=== PATIENT | male | born 1970 | race American Indian/Alaskan Native ===

== ENCOUNTER 2016-10-13 14:34 | Emergency (ER) | payer MEDICARE ==
[2016-10-13 15:53] LABS: Basophils % (Auto) 0.7 % (0.0-1.8); Eosinophils % (Auto) 0.1 % (0.0-4.3); Hematocrit 50.3 % (35.5-45.6); Mean Corpuscular HGB Conc 34 % (32-34); Mean Corpuscular Hemoglobin 31 pg (28-32); Mean Corpuscular Volume 92 fl (84-94); Platelet Count 297 K/mm3 (140-440); Red Blood Count 5.48 M/mm3 (3.65-5.03); Red Cell Distribution Width 15.5 % (13.2-15.2); White Blood Count 9.3 K/mm3 (4.5-11.0)
[2016-10-13 15:54] LABS: Alanine Aminotransferase 11 units/L (7-56); Albumin 3.8 g/dL (3.9-5); Albumin/Globulin Ratio 1.5 %; Alkaline Phosphatase 64 units/L (35-129); Anion Gap 18 mmol/L; BUN/Creatinine Ratio 8.75; Blood Urea Nitrogen 7 mg/dL (9-20); Calcium 8.8 mg/dL (8.4-10.2); Carbon Dioxide 24 mmol/L (22-30); Chloride 103.3 mmol/L (98-107); Glucose 77 mg/dL (75-100); Lipase 56 units/L (13-60); Potassium 4.6 mmol/L (3.6-5.0); Sodium 141 mmol/L (137-145); Total Protein 6.4 g/dL (6.3-8.2)
[2016-10-13 16:04] LABS: Bilirubin,Urine NEG (Negative); Blood,Urine NEG (Negative); Ketones,Urine NEG (Negative); Leukocyte Esterase,Urine MOD (Negative); Nitrite,Urine NEG (Negative); Protein,Urine <15 mg/dL mg/dL (Negative); Urobilinogen,Urine < 2.0 mg/dL (<2.0)
[2016-10-13] MEDS ORDERED: TYLENOL PO ONE (19:04)
[2016-10-13] MEDS ORDERED: TYLENOL ONE (19:05)
[2016-10-13] MEDS ORDERED: PEPCID IV ONE (22:09)
[2016-10-13] MEDS ORDERED: ZOFRAN IV ONE (22:09)
[2016-10-13] MEDS ORDERED: MORPHINE IV ONE ×2 (22:09→23:31)
[2016-10-13] MEDS ORDERED: NACL 0.9% 1000 ML 1,000 ML IV ONE (22:09)
--- NOTE | 2016-10-13 22:14 | Emergency Department Report ---
HPI - General Chief Complaint: Abdominal Pain Time Seen by Provider: 10/13/16 21:50 - HPI HPI: Room 10 The patient is a 46-year-old transgender male (born female) presenting with chief complaint of abdominal pain. He states his symptoms began yesterday approximately 15-20 minutes after eating a quesadilla. Patient states his pain is located in the epigastric, periumbilical region and describes it as unbearable." Patient denies nausea vomiting or diarrhea. The patient does admit to having frequent solid bowel movements. The patient states he is tried Pepto-Bismol and Gas-X without relief. The patient states when he awakened this morning at 07:00 his pain had worsened. Patient states he is uncertain if he developed a fever. The patient rarely gets his pain a score of 7/10 Location: Abdomen Duration: Since yesterday Quality: "Unbearable" Severity:7/10 Modifying factors: [see above] Context: [see above] Mode of transportation: The patient states he has a visitor present that can drive him home ED Past Medical Hx - Past Medical History Previous Medical History?: Yes Hx Diabetes: Yes (diet controlled) - Surgical History Past Surgical History?: Yes Additional Surgical History: rt shoulder rotator cuff repair. breast removed ( transgender) - Family History Family history: no significant - Social History Smoking Status: Current Some Day Smoker (cigars) Substance Use Type: None (denies illicit drug use) - Medications Home Medications: Home Medications Medication Instructions Recorded Confirmed Last Taken Type Dicyclomine [Bentyl] 20 mg PO QID #20 tablet 10/13/16 Unknown Rx Ondansetron [Zofran ODT TAB] 8 mg PO Q8HR #20 tab.rapdis 10/13/16 Unknown Rx traMADol [Ultram] 50 mg PO Q6HR PRN #14 tablet 10/13/16 Unknown Rx ED Review of Systems ROS: Stated complaint: STOMACH PAIN Other details as noted in HPI Comment: All other systems reviewed and negative Constitutional: denies: chills, fever Eyes: denies: eye pain, eye discharge, vision change ENT: denies: ear pain, throat pain Respiratory: denies: cough, shortness of breath, wheezing Cardiovascular: denies: chest pain, palpitations Endocrine: no symptoms reported Gastrointestinal: abdominal pain. denies: nausea, vomiting, diarrhea Genitourinary: denies: urgency, dysuria Musculoskeletal: denies: back pain, joint swelling, arthralgia Skin: denies: rash, lesions Neurological: denies: headache, weakness, paresthesias Psychiatric: denies: anxiety, depression Hematological/Lymphatic: denies: easy bleeding, easy bruising Physical Exam - Physical Exam Vital Signs: Vital Signs 10/13/16 10/13/16 14:53 19:05 Temperature 98.6 F Pulse Rate 80 Respiratory 18 Rate Blood Pressure 128/76 Physical Exam: GENERAL: The patient is well-developed well-nourished male lying on stretcher not appearing to be in acute distress. [] HEENT: Normocephalic. Atraumatic. Extraocular motions are intact. Patient has moist mucous membranes. NECK: Supple. No meningitic signs are noted. There is no adenopathy noted. CHEST/LUNGS: Clear to auscultation. There is no respiratory distress noted. HEART/CARDIOVASCULAR: Regular. There is no tachycardia. There is no gallop rub or murmur. ABDOMEN: Abdomen is soft, with mild discomfort to palpation in the epigastric and suprapubic region there is no rebound or guarding. Patient has normal bowel sounds. There is no abdominal distention. SKIN: There is no rash. There is no edema. There is no diaphoresis. NEURO: The patient is awake, alert, and oriented. The patient is cooperative. The patient has normal speech MUSCULOSKELETAL: There is no evidence of acute injury. ED Course Vital Signs 10/13/16 10/13/16 14:53 19:05 Temperature 98.6 F Pulse Rate 80 Respiratory 18 Rate Blood Pressure 128/76 ED Medical Decision Making - Lab Data Result diagrams: 10/13/16 15:21 10/13/16 15:21 Laboratory Tests 10/13/16 10/13/16 10/13/16 15:21 15:21 Unknown WBC 9.3 RBC 5.48 H Hgb 17.0 H Hct 50.3 H MCV 92 MCH 31 MCHC 34 RDW 15.5 H Plt Count 297 Lymph % (Auto) 16.4 Garvin % (Auto) 8.3 H Eos % (Auto) 0.1 Baso % (Auto) 0.7 Lymph # 1.5 Garvin # 0.8 Eos # 0.0 Baso # 0.1 Seg Neutrophils % 74.5 H Seg Neutrophils # 7.0 Sodium 141 Potassium 4.6 Chloride 103.3 Carbon Dioxide 24 Anion Gap 18 BUN 7 L Creatinine 0.8 Estimated GFR > 60 BUN/Creatinine Ratio 8.75 Glucose 77 Calcium 8.8 Total Bilirubin 0.60 AST 14 ALT 11 Alkaline Phosphatase 64 Total Protein 6.4 Albumin 3.8 L Albumin/Globulin Ratio 1.5 Lipase 56 Urine Color Yellow Urine Turbidity Clear Urine pH 7.0 Ur Specific [place] 1.008 Urine Protein <15 mg/dl Urine Glucose (UA) Neg Urine Ketones Neg Urine Blood Neg Urine Nitrite Neg Urine Bilirubin Neg Urine Urobilinogen < 2.0 Ur Leukocyte Esterase Mod Urine WBC (Auto) 3.0 Urine RBC (Auto) 3.0 U Epithel Cells (Auto) < 1.0 - Radiology Data Radiology results: report reviewed (CT abdomen and pelvis), image reviewed (CT abdomen and pelvis) CT abdomen and pelvis (read by radiologist)- cholelithiasis. No dilatation of the biliary ductal system. No evidence of intestinal or urinary tract obstruction. No ileus or enteritis. Appendix is normal. Mild diverticulosis of the distal colon. - Differential Diagnosis gastritis, peptic ulcer disease, pancreatitis, diverticulitis, UTI Critical care attestation.: If time is entered above; I have spent that time in minutes in the direct care of this critically ill patient, excluding procedure time. ED Disposition Clinical Impression: Acute abdominal pain, Symptomatic cholelithiasis Disposition: TO HOME OR SELFCARE Is pt being admited?: No Does the pt Need Aspirin: No Condition: Stable Instructions: Biliary Colic (ED) Additional Instructions: Return to the emergency department immediately should you develop worsening symptoms, fever, inability to tolerate food or liquid or any other concerns. Prescriptions: Dicyclomine [Bentyl] 20 mg PO QID #20 tablet Ondansetron [Zofran ODT TAB] 8 mg PO Q8HR #20 tab.rapdis traMADol [Ultram] 50 mg PO Q6HR PRN #14 tablet PRN Reason: Pain Referrals: ABIMAEL GAITAN PA [Primary Care Provider] - 3-5 Days JANETTE WALKER MD [Staff Physician] - 3-5 Days (Dr. Walker is a general surgeon. Please follow up with him for further evaluation of your gallstones) ANABEL VICKERS MD [Staff Physician] - 3-5 Days (Dr. Vickers is a electronic gluing machine operator. Please follow-up with him for further evaluation) Time of Disposition: 23:47
[2016-10-13] MEDS ORDERED: NACL ONE (22:24)
[2016-10-13 22:44] VITALS: BP 124/70
--- NOTE | 2016-10-13 23:13 | Cat Scan Report ---
FINAL REPORT PROCEDURE: CT ABDOMEN PELVIS W CON TECHNIQUE: Computerized axial tomography of the abdomen and pelvis was performed after the IV injection of iodinated nonionic contrast. HISTORY: periumbilical/suprapubic abdominal pain COMPARISON: No prior studies are available for comparison. FINDINGS: Visualized lower thorax: No significant abnormality. Liver: Normal size and attenuation. Spleen: Normal size and attenuation. Gallbladder and biliary system: Stones identified within the gallbladder. No dilatation of the biliary ductal system. Pancreas: Normal. Adrenals: Normal. Kidneys: Both kidneys have normal size. No hydronephrosis. No renal stones or masses. GI tract: The stomach is normal. The small bowel has a normal caliber. No obstruction, ileus or enteritis. The cecum, appendix and colon are normal. Minimal diverticular changes identified within the distal colon.. Lymph nodes and mesentery: Normal. Vasculature: Normal. Bladder: Normal. Reproductive organs: Normal. Peritoneum: No pelvic masses. Musculoskeletal structures: No significant abnormality. Other: None. IMPRESSION: Cholelithiasis. No dilatation of the biliary ductal system. No evidence of intestinal or urinary tract obstruction. No ileus or enteritis. The appendix is normal. Mild diverticulosis of the distal colon.
== END 2016-10-14 00:41 | disposition home or self-care (01) ==
LOC: ED 14:34
DX: R10.13 Epigastric pain (principal); E11.9 Type 2 diabetes mellitus without complications; F17.200 Nicotine dependence, unspecified, uncomplicated
CPT/HCPCS: 36415; 74177; 80053; 81001; 83690; 85025; 96361; 96374; 96375; 96376; 99284; J2270; J2405; J7030; Q9967